=== PATIENT | female | born 1975 | race Caucasian/White ===

== ENCOUNTER 2019-10-20 11:11 | Emergency (ER) | payer BC ==
[~2019-10-20] VITALS: Ht 154.9 cm; Wt 66.2 kg
--- NOTE | ~2019-10-20 | EKG ---
[place], [place] ELECTROCARDIOGRAM REPORT NAME: MIKO RICH UNIT #: [id number] ROOM: DOCTOR: EPIPHANY DRAFT REPORT BIRTHDATE: [birth year] [facility] Test Date: 2019-10-20 Test Time: 11:53:54 Pat Name: MIKO RICH Department: ED Room: Gender: F Analyst Programmer: EKG.IN : 1975 Requested By: TR SAEED DNP Order Number: [id number] Reading MD: Adan Brown MD Measurements Intervals [place] Rate: 61 P: 46 MS: 130 QRS: 44 QRSD: 86 T: 65 QT: 426 QTc: 429 Interpretive Statements Sinus rhythm Probable left atrial enlargement Probable left ventricular hypertrophy Electronically Signed On 10-23-2019 10:00:13 PST by Adan Brown MD CM:EKGRPT:ELECTROCARDIOGRAM REPORT 1153 1000 TR LEDEZMA DRAFT REPORT TR SAEED DNP
[~2019-10-20 11:11] MED LIST: ALDOMET500 MG PO; ATENOLOL25 MG PO; ATIVAN0.5 MG PO; BP PILL; LOTREL 5 MG-101 CAP PO; MACROBID100 M1 PO; MOTRIN600 MG PO; PRENATAL1 TA1 PO; PROCARDIA XL90 MG PO; TUMS500 MG PO; ULTRAM50 MG PO; VALIUM10 MG PO; ZITHROMAX Z PA250 MG PO
[2019-10-20 11:57] LABS: BASO % 0.3 % (0.0-1.0); EOS # 0.3 10*3/uL (0.0-0.4); EOS % 4.1 % (1.0-4.0); HEMATOCRIT 32.6 % (37.0-47.0); LYMPH # 2.7 10*3/uL (1.3-4.4); LYMPH % 40.3 % (27.0-41.0); MEAN CELL VOLUME 83.8 fl (81.0-99.0); MEAN CORPUSCULAR HGB 25.7 pg (27.0-31.0); MEAN CORPUSCULAR HGB CONC 30.7 g/dl (33.0-37.0); MEAN PLATELET VOLUME 8.3 fl (9.6-12.3); MONO # 0.5 10*3/uL (0.1-1.0); MONO % 6.9 % (3.0-9.0); NEUT # 3.3 10*3/uL (2.3-7.9); NEUT % 48.3 % (47.0-73.0); PLATELET COUNT AUTOMATED 306 10*3/uL (130-400); RED BLOOD COUNT 3.89 10*6/uL (4.10-5.10); RED CELL DISTRI WIDTH 16.5 % (0-14.5); WHITE BLOOD COUNT 6.8 10*3/uL (4.8-10.8)
[2019-10-20 12:15] LABS: ALBUMIN 3.6 gm/dl (3.1-4.5); ALKALINE PHOSPHATASE 53 U/L (45-117); BUN 10 mg/dl (7-24); CHLORIDE 111 mmol/L (98-107); CREATININE 0.62 mg/dL (0.55-1.02); POTASSIUM 3.7 mmol/L (3.5-5.1); SGOT/AST 16 IU/L (3-35); SGPT/ALT 19 U/L (12-78); SODIUM 140 mmol/L (136-145); TOTAL PROTEIN 6.5 gm/dL (6.4-8.2)
[2019-10-20 12:16] LABS: TROPONIN I < 0.015 ng/ml (<0.045)
[2019-10-20] MEDS ORDERED: IBU800 MG PO (13:00)
[2019-10-20] MEDS ORDERED: CYCLOBENZAPRINE10 MG PO (13:00)
== END 2019-10-20 13:04 | disposition home or self-care (01) ==
LOC: ED 11:11
PROVIDERS: Nurse Practitioner Family
DX: M62.838 Other muscle spasm (principal); M25.512 Pain in left shoulder; M79.602 Pain in left arm; I10 Essential (primary) hypertension; Z88.0 Allergy status to penicillin; Z79.899 Other long term (current) drug therapy

== ENCOUNTER → 2020-04-05 | Outpatient (CLI) | payer OTHER, BC ==
[~2020-04-05] MED LIST changes: +CYCLOBENZAPRINE10 MG PO; +IBU800 MG PO
== END | disposition home or self-care (01) ==
LOC: RAD 12:02
DX: M47.812 Spondylosis without myelopathy or radiculopathy, cervical region (principal); M48.02 Spinal stenosis, cervical region; M25.78 Osteophyte, vertebrae

== ENCOUNTER → 2022-08-25 | Outpatient (CLI) | payer BC, OTHER | END | disposition home or self-care (01) | LOC: RAD 11:51 | PROVIDERS: ATTEND Family Medicine | DX: M47.812 Spondylosis without myelopathy or radiculopathy, cervical region (principal); M48.02 Spinal stenosis, cervical region ==

== ENCOUNTER → 2023-11-08 | Outpatient (CLI) | payer BC ==
[2023-11-08 09:57] LABS: BASO % 0.5 % (0.0-1.0); BILIRUBIN Negative (Negative); BLOOD Negative (Negative); CLARITY Clear (Clear); COLOR Yellow (Yellow); EOS # 0.3 10*3/uL (0.0-0.4); EOS % 3.4 % (1.0-4.0); GLUCOSE Negative (Negative); HEMATOCRIT 41.8 % (37.0-47.0); KETONE Negative (Negative); LEUKO ESTERASE 1+ (Negative); LYMPH # 3.8 10*3/uL (1.3-4.4); LYMPH % 45.7 % (27.0-41.0); MEAN CELL VOLUME 93.5 fl (81.0-99.0); MEAN CORPUSCULAR HGB 30.4 pg (27.0-31.0); MEAN CORPUSCULAR HGB CONC 32.5 g/dl (33.0-37.0); MEAN PLATELET VOLUME 8.3 fl (9.6-12.3); MONO # 0.5 10*3/uL (0.1-1.0); MONO % 6.2 % (3.0-9.0); NEUT # 3.6 10*3/uL (2.3-7.9); NEUT % 43.8 % (47.0-73.0); NITRITE Negative (Negative); PH 6.5 (4.5-8.0); PLATELET COUNT AUTOMATED 364 10*3/uL (130-400); RED BLOOD COUNT 4.47 10*6/uL (4.10-5.10); RED CELL DISTRI WIDTH 13.9 % (0-14.5); WHITE BLOOD COUNT 8.2 10*3/uL (4.8-10.8)
[2023-11-08 10:06] LABS: ACT PARTIAL THROMBO TIME 27.1 SECONDS (20.0-32.1)
[2023-11-08 10:36] LABS: ALKALINE PHOSPHATASE 88 U/L (46-116); BUN 11 mg/dl (9-23); CHLORIDE 108 mmol/L (98-107); POTASSIUM 4.1 mmol/L (3.4-5.1); SGPT/ALT 13 U/L (5-49); TOTAL PROTEIN 6.9 gm/dL (6.0-8.0)
[2023-11-08 11:30] LABS: BACTERIA 2+; MUCOUS 2+
== END | disposition home or self-care (01) ==
LOC: LAB 09:27
PROVIDERS: ATTEND Neurological Surgery
DX: M48.02 Spinal stenosis, cervical region (principal); M54.12 Radiculopathy, cervical region; R00.1 Bradycardia, unspecified

== ENCOUNTER → 2023-11-15 | Outpatient (CLI) | payer BC | END | disposition home or self-care (01) | LOC: US 04:04 | PROVIDERS: ATTEND Neurological Surgery | DX: M48.02 Spinal stenosis, cervical region (principal); M54.12 Radiculopathy, cervical region ==

== ENCOUNTER 2023-12-16 12:10 | Emergency (ER) | payer BC ==
[~2023-12-16] VITALS: Wt 65.3 kg
[2023-12-16] MEDS ORDERED: OXYCODONE5 M1 PO (12:27)
[2023-12-16] MEDS ORDERED: OMEPRAZOLE MAGN20 MG PO (12:39)
== END 2023-12-16 14:42 | disposition home or self-care (01) ==
LOC: ED 12:10
DX: S09.93XA Unspecified injury of face, initial encounter (principal); T14.8XXA Other injury of unspecified body region, initial encounter; I10 Essential (primary) hypertension; F32.A Depression, unspecified; Z88.0 Allergy status to penicillin; Z98.890 Other specified postprocedural states; X58.XXXA Exposure to other specified factors, initial encounter; Y93.01 Activity, walking, marching and hiking; Y92.89 Other specified places as the place of occurrence of the external cause; Y99.8 Other external cause status

== ENCOUNTER → 2024-02-03 | Outpatient (CLI) | payer BC ==
[~2024-02-03] MED LIST changes: +OMEPRAZOLE MAGN20 MG PO; +OXYCODONE5 M1 PO
== END | disposition home or self-care (01) ==
LOC: RAD 09:29
PROVIDERS: ATTEND Nurse Practitioner Family
DX: R07.9 Chest pain, unspecified (principal)

== ENCOUNTER → 2024-02-22 | Outpatient (CLI) | payer BC | END | disposition home or self-care (01) | LOC: CARD 00:36 | PROVIDERS: ATTEND Internal Medicine Cardiovascular Disease | DX: I49.1 Atrial premature depolarization (principal); R00.2 Palpitations; R07.89 Other chest pain; R00.0 Tachycardia, unspecified ==

== ENCOUNTER 2024-07-20 04:37 | Emergency (ER) | payer OTHER, BC ==
[2024-07-20] MEDS ORDERED: Ketorolac Tromethamine 60 MG/2 ML VIAL IM ONE (05:15)
[2024-07-20] MEDS ORDERED: METHOCARBAMOL 500 MG TAB PO ONE (05:20)
[2024-07-20] MEDS ORDERED: METHOCARBAMOL500 M1 PO (05:36)
[2024-07-20] MEDS ORDERED: NAPROXEN250 MG PO (05:36)
== END 2024-07-20 05:30 | disposition home or self-care (01) ==
LOC: ED 04:37
DX: S29.012A Strain of muscle and tendon of back wall of thorax, initial encounter (principal); Z88.0 Allergy status to penicillin; Z79.899 Other long term (current) drug therapy; Z90.710 Acquired absence of both cervix and uterus; X58.XXXA Exposure to other specified factors, initial encounter; Y93.89 Activity, other specified; Y92.89 Other specified places as the place of occurrence of the external cause; Y99.0 Civilian activity done for income or pay

== ENCOUNTER → 2024-08-01 | Outpatient (CLI) | payer BC, OTHER ==
[~2024-08-01] MED LIST changes: +METHOCARBAMOL500 M1 PO; +NAPROXEN250 MG PO
[2024-08-01 10:58] LABS: BASO % 0.4 % (0.0-1.0); EOS # 0.1 10*3/uL (0.0-0.4); EOS % 0.8 % (1.0-4.0); HEMATOCRIT 41.7 % (37.0-47.0); LYMPH # 2.7 10*3/uL (1.3-4.4); LYMPH % 35.3 % (27.0-41.0); MEAN CELL VOLUME 92.1 fl (81.0-99.0); MEAN CORPUSCULAR HGB 31.3 pg (27.0-31.0); MEAN CORPUSCULAR HGB CONC 34.1 g/dl (33.0-37.0); MEAN PLATELET VOLUME 8.4 fl (9.6-12.3); MONO # 0.5 10*3/uL (0.1-1.0); MONO % 6.6 % (3.0-9.0); NEUT # 4.4 10*3/uL (2.3-7.9); NEUT % 56.5 % (47.0-73.0); PLATELET COUNT AUTOMATED 349 10*3/uL (130-400); RED BLOOD COUNT 4.53 10*6/uL (4.10-5.10); RED CELL DISTRI WIDTH 13.3 % (0-14.5); WHITE BLOOD COUNT 7.7 10*3/uL (4.8-10.8)
[2024-08-01 11:08] LABS: ACT PARTIAL THROMBO TIME 24.7 SECONDS (20.0-32.1)
[2024-08-01 11:18] LABS: ALKALINE PHOSPHATASE 88 U/L (46-116); BUN 9 mg/dl (9-23); CHLORIDE 107 mmol/L (98-107); POTASSIUM 3.7 mmol/L (3.4-5.1); SGPT/ALT 15 U/L (5-49); TOTAL PROTEIN 6.8 gm/dL (6.0-8.0)
== END | disposition home or self-care (01) ==
LOC: LAB 10:19
PROVIDERS: ATTEND Specialist
DX: M25.512 Pain in left shoulder (principal); M24.812 Other specific joint derangements of left shoulder, not elsewhere classified